=== PATIENT | female | born 1990 | race Caucasian/White ===

== ENCOUNTER 2019-02-17 04:00 | Inpatient (IN) ==
[2019-02-17] MEDS ORDERED: Naloxone 0.4 MG/ML INJ IVP PRN (04:16)
[2019-02-17] MEDS ORDERED: Ondansetron 4 MG/2 ML VIAL IVP PRN (04:16)
[2019-02-17] MEDS ORDERED: *HR* Nalbuphine 10 MG/ML AMPUL IVP PRN (04:16)
[2019-02-17] MEDS ORDERED: Famotidine 20 MG/2 ML VIAL IVP PRN (04:16)
[2019-02-17] MEDS ORDERED: Metoclopramide 10 MG/2 ML VIAL IVP PRN (04:16)
[2019-02-17] MEDS ORDERED: Oxytocin 20 units/ LR 1000 mL 20 UNIT/1,000 ML BAG IVC SCH ×2 (04:30→22:24)
[2019-02-17] MEDS ORDERED: Ringers Solution, Lactated 1,000 ML IVC SCH (04:30)
[2019-02-17 05:12] LABS: Basophils % 0.2 %; Eosinophils # 0.1 K/mcL (0.0-0.6); Eosinophils % 0.5 %; Hematocrit 37.3 % (35.3-44.9); Hemoglobin 12.1 g/dL (11.5-15.4); Immature Granulocytes % 0.4 % (0-4); Lymphocytes # 2.3 K/mcL (0.6-4.6); Lymphocytes % 23.2 %; Mean Corpuscular HGB Conc 32.4 g/dL (31.6-35.5); Mean Corpuscular Hemoglobin 28.5 pg (28.0-33.3); Mean Corpuscular Volume 87.8 fL (83.0-100.0); Mean Platelet Volume 9.8 fL (9.4-12.4); Monocytes # 0.6 K/mcL (0.0-1.3); Platelet Count 239 K/mcL (140-400); Red Blood Count 4.25 M/mcL (3.82-4.97); Red Cell Distribution Width 12.7 % (11.5-14.5); Segmented Neutrophils % 69.7 %; White Blood Count 10.1 K/mcL (4.3-11.1)
[2019-02-17] MEDS ORDERED: *HR* FentaNYL (PF) 100 MCG/2 ML VIAL EP ONE (06:10)
[2019-02-17] MEDS ORDERED: Bupivacaine-MPF 0.25% 10 ML VIAL EP ONE (06:10)
--- NOTE | 2019-02-17 06:10 | Anesthesia Evaluation PreOp ---
Date of Encounter: 02/17/19 Time of Encounter: 06:08 - Past History Planned Operation: FLORINA Cardiac History: Denies any Significant Hx Pulmonary History: Denies Any Significant HX STOCK WETTER History: Denies Any Significant HX Other Medical History: Thyroid Anesthesia History: No Prior Anesthetic Complications, Past Anesthesia (FLORINA x2) : Yes Test: Positive Alcohol Use: none Drug use: none Medications and Allergies [id number]/Iron Fumarate/FA/Dss [ 19 Tablet] 1 each PO DAILY 11/05/18 [History] Allergy/AdvReac Type Severity Reaction Status Date / Time No Known Allergies Allergy Verified 04/29/15 11:31 - Meds/Allergy Pre-op Review Medications Reviewed: Yes Allergies Reviewed: Yes Beta Blockers on Current Med List: No Anesthesia Results - Labs 02/17/19 04:44 Anesthesia Exam 114/71 74 16 fht 120 Height: 5'6" Weight: 70K NPO (# of Hours): 2 Pain Scale: 3 Pain Scale Used: Numeric (1 - 10) - HEENT Pupil (Motor): Pupils equal Mallampati: II Teeth: Normal Oral Opening: Greater than 3 - STOCK WETTER LOC: Oriented STOCK WETTER Motor: Normal RUE, Normal LUE, Normal RLE, Normal LLE, Normal Face STOCK WETTER Sensory: Normal: RUE, LUE, RLE, LLE, Face - Cardiac Rhythm: Regular Murmur: None - Pulmonary Breath Sounds: bilateral Clear Respiratory Effort: Symmetrical Anesthesia Assess/Plan ASA Score: 2 Level of consciousness: Cooperative Anesthetic Plan: Epidural (risks discussed, questions answered, consented) Autologous Blood: No Monitoring Plan: Standard Monitors Recovery Plan: Other
[2019-02-17] MEDS ORDERED: Epidural Premix (fent/bupiv) 110 ML EP SCH (06:15)
[2019-02-17 07:29] LABS: Amphetamine Screen,Urine Negative ng/mL (Cutoff=1000); Barbiturate Screen,Urine Negative ng/mL (Cutoff=200); Benzodiazepines Screen,Urine Negative ng/mL (Cutoff=200); Cannabinoid Screen,Urine Negative ng/mL (Cutoff = 50); Cocaine Screen,Urine Negative ng/mL (Cutoff= 300); Opiate Screen,Urine Negative ng/mL (Cutoff=300); Phencyclidine Screen,Urine Negative ng/mL (Cutoff=25)
--- NOTE | 2019-02-17 07:30 | OB/GYN History & Physical ---
Date of Encounter: 02/17/19 Time of Encounter: 07:28 Assessment and Plan (1) 39 weeks gestation of Current visit: Yes Status: Acute (2) Elective induction of labor planned Current visit: Yes Status: Acute History of Present Illness Chief complaint: induction HPI: Ms. Hagen is a 28 year old female presents today for induction of labor. She is doing well. She is having no complaints. She has a history of rapid labor. She has no drug allergies. She is currently on vitamins. She has no chronic medical conditions. Surgical history is negative. She has no history of abnormal Pap smears, STDs or pelvic infections. Socially she denies tobacco, alcohol, illicit drug use. Obstetric history significant for 2 term vaginal deliveries uncomplicated. Family history is noncontributory. Past Med Surg Social Fam HX - Past Medical History Medical history: non-contributory Psychiatric history: no psych history - Past Surgical History Surgical History: no surgical history, non-contributory - Social History Smoking Status: Never smoker Smokeless Tobacco Status: No Alcohol use: none Drug use: none - Family History Mother Living Status: Still Living Hx Family Cardiac Disorders: No Hx Family Respiratory Disorders: No Hx Family Cancer: No Hx Family GI Disorders: No Hx Family Genitourinary Disorders: No Hx Family Endocrine Disorder: No Hx Family Musculoskeletal Disorders: No Hx Family Neuromuscular Disorders: No Hx Family Neurologic Disorders: No Hx Family HEENT Disorders: No Hx Family Autoimmune Disorders: No Hx Family Reproductive Disorders: No Hx Family Psychosocial Disorders: No Hx Family Medical Disorders: No Obstetrical History - Pregnancies : 3 Para: 2 Term: 2 Livin Medications and Allergies Mzx125/Iron Fumarate/FA/Dss [ 19 Tablet] 1 each PO DAILY 11/05/18 [History] Allergy/AdvReac Type Severity Reaction Status Date / Time No Known Allergies Allergy Verified 04/29/15 11:31 Review of System OB All systems PM: reviewed and no additional remarkable complaints except as stated Exam - Constitutional Constitutional: well developed, well nourished, no acute distress, average body habitus - HEENT HEENT: EOMI, PERRL, Normocephaly - Neck Neck exam: full ROM - Lungs Respiratory exam: CTAB - Cardiovascular Cardiovascular exam: RRR - Abdomen Abdomen: Present: bowel sounds normal, gravid, non tender - Extremities Extremities exam: full ROM - Vagina Vagina: Present: normal moisture - Cervix Dilation: 0 Effacement: 60 Station: -2 - Uterus Uterus exam: Present: normal size Results Result Diagrams: 02/17/19 04:44 All other labs normal. - VTE Reasons for not Prescribing Prophylaxis: Treatment not Indicated - Low risk for VTE
--- NOTE | 2019-02-17 07:34 | OB Labor Progress Note ---
Date of Encounter: 02/17/19 Time of Encounter: 06:55 Labor Progress Note - Subjective Subjective: Patient breathing through contractions; states pain is tolerable at this time. - Vital Signs Vital Signs: VSS - Cervix Cervix: 1-2/60/-3 anterior - Heart Tones Heart Tones: 130 baseline moderate variability with 15 x 15 accels no decels - [place]: Contractions every 3-4 minutes palpate moderate - Interventions Interventions: Attempted to place intracervical tomas without success. - Plan Plan: Continue routine labor management Consider intracervical tomas placement Continue pitocin titration for adequate contractions Anticipate vaginal delivery POC per consult with Dr Nicholas.
--- NOTE | 2019-02-17 09:48 | OB Labor Progress Note ---
Date of Encounter: 02/17/19 Time of Encounter: 09:46 Labor Progress Note - Subjective Subjective: Pt reports mild to moderate discomfort with contractions. - Vital Signs Vital Signs: VSS - Cervix Cervix: 3/80/-2 - Heart Tones Heart Tones: Category I - [place]: 2-3 minutes - Interventions Interventions: Cook catheter placed using sterile technique. Uterine balloon inflated with 60ml sterile water. 40ml placed in vaginal balloon. Pt tolerated well. - Plan Plan: Cook catheter placed per Dr. Nicholas's request. Epidural when requested. Anticipate .
[2019-02-17] MEDS ORDERED: Bupivacaine-MPF 0.25% 10 ML VIAL ONE (13:25)
[2019-02-17] MEDS ORDERED: *HR* FentaNYL (PF) 100 MCG/2 ML VIAL ONE (13:25)
--- NOTE | 2019-02-17 14:07 | Anesthesia Procedures ---
Date of Encounter: 02/17/19 Time of Encounter: 13:28 Procedures: Anesthesia - Epidural/Spinal Patient ID/Chart reviewed: Yes Patient examined: Yes OB Eval: Gestational age: 39 OB Eval: : 3 OB Eval: Hx Para: 2 OB Eval: Dilated at (cm): 6 OB Eval: Contractions: Non-stressed pattern Consent Obtained: Yes Supplemental Oxygen: None/Room Air Site Prep: Aseptic Technique, Sterile prep and drape, 0.5% Chlorhexidine/Alcohol Patient position: upright Local Anesthetic: Lidocaine 1% Amount of Local Anesthetic used: 3 Touhy Needle Gauge: 18 Touhy Needle Depth (cm): 5 Catheter Depth at Skin (cm): 10 Test Dose (1.5% Lido + Epi): Volume given (mls): 3 Test Dose Result: Negative Loading Dose: 0.25% Marcaine (mls): 5 Loading Dose: Fentanyl (mcg): 100 Loading Dose Administered: Thru Catheter Infusion Med: 0.125% Bupivacaine w/ 2 mcg/ml Fentanyl Infusion Rate (mls/hr): 15 (demand bolus 4ml q20 mins, 2 per hour) Catheter Secured in Place: Tegaderm, Tape Interspace Used: L3-L4 Loss of Resistance (KEVIN): Yes Blood: No CSF: No Paresthesia: No Procedure: DPE technique used with 25G carter. No meds administered in subarachnoid space. Vitals + FHT's: Vital Signs Time 1328 1342 1345 1350 1355 BP 138/82 122/81 124/73 118/75 114/82 Pulse 83 98 76 73 91 FHTs 120 120 120 120 120
--- NOTE | 2019-02-17 19:53 | OB/GYN Procedure Note ---
Delivery - Delivery Date: 02/17/19 Provider: Tj Nicholas Intrapartum events: none Delivery induction: oxytocin, tomas Delivery augmentation: rupture of membranes, pitocin Delivery monitor: external FHT, external uterine Anesthesia: epidural Quantitated Blood Loss: 400 - Infant (s) A Infant Delivery Date: 02/17/19 Infant Delivery Time: 19:39 Presentation: vertex Position: MIGUEL Route of delivery: Gender: Female Viability: Viable Pounds: 8 Ounces: 1 Weight Gram: 3.67 kg at 1 minute: 9 at 5 mins: 9 Shoulder Dystocia: not encountered Placenta: spontaneous Cord: 3 umbilical vessels - Repair Episiotomy: none Laceration Description: None - Complications Delivery complications: none - Disposition Mom disposition: stable in LDR disposition: stable in LDR - Comments Comments: This patient progressed to complete and pushing. After approximately 40 minutes of pushing this patient was exhausted. She did not feel she could push any longer. Infant's head came down to a +2 station. She was unable to bring baby down any farther even with multiple assisted techniques. At this time we elected to place a vacuum. was found to be in right occiput anterior presentation. A mighty VAC was utilized in the usual fashion for a total of 55 seconds. One pull was noted which brought the baby's head out on the vagina. The mighty Vac was taken off. The rest of the was then delivered without difficulty. There was a cord around the neck which was delivered through. Infant cried immediately upon delivery. The cord was clamped cut. The infant was passed to nursing in attendance. Cord blood was obtained. The placenta was delivered spontaneously and intact. There were no cervical, vaginal, periurethral, or perineal lacerations noted. Patient delivered a female infant weight was 8 lbs. 1 oz., 3670 g. Apgars were 9 at 1 minute and 9 at 5 minutes. Estimated blood loss 400 mL.
[2019-02-17] MEDS ORDERED: Measles/Mumps/Rubella Vacc 0.5 ML VIAL SQ PRN (22:24)
[2019-02-17] MEDS ORDERED: Rho Immune Globulin 1,500 UNIT SYRINGE IM PRN (22:24)
[2019-02-17] MEDS: Acetaminophen 325 MG TABLET PO PRN (22:38)
[2019-02-18] MEDS: Acetaminophen 325 MG TABLET PO PRN ×2 (06:26→14:41)
[2019-02-18 07:42] LABS: Basophils % 0.2 %; Eosinophils % 0.2 %; Hematocrit 38.6 % (35.3-44.9); Hemoglobin 12.1 g/dL (11.5-15.4); Immature Granulocytes % 0.8 % (0-4); Lymphocytes # 2.4 K/mcL (0.6-4.6); Lymphocytes % 13.1 %; Mean Corpuscular HGB Conc 31.3 g/dL (31.6-35.5); Mean Corpuscular Hemoglobin 27.6 pg (28.0-33.3); Mean Corpuscular Volume 87.9 fL (83.0-100.0); Mean Platelet Volume 9.8 fL (9.4-12.4); Monocytes % 5.6 %; Neutrophils # 14.9 K/mcL (1.6-8.9); Platelet Count 223 K/mcL (140-400); Red Blood Count 4.39 M/mcL (3.82-4.97); Red Cell Distribution Width 12.7 % (11.5-14.5); Segmented Neutrophils % 80.1 %
[2019-02-18 08:02] LABS: White Blood Count 18.6 K/mcL (4.3-11.1)
[2019-02-18] MEDS ORDERED: Prenatal Vit/FA 1 EACH TABLET PO SCH (09:00)
[2019-02-18] MEDS ORDERED: Ibuprofen 600 MG TABLET PO PRN (09:13)
--- NOTE | 2019-02-18 12:53 | Discharge Summary ---
Date of Encounter: 02/18/19 Time of Encounter: 12:51 - Discharge Diagnosis (1) Vaginal delivery Priority: Primary Status: Acute Comments: Patient meeting day one milestones. Pain well-controlled with prescribed medications. Voiding without difficulty, tolerating regular diet, bleeding light. No bowel movement yet. Anticipate discharge this evening (2) Breast feeding status of mother Priority: Secondary Status: Acute Comments: support as needed. Breast pump prescription provided upon discharge. - Discharge Medications Prescriptions: New Breast Pump [BREAST PUMP] 1 each .ROUTE AD #1 each Docusate [Colace] 100 mg PO BID capsule Ibuprofen [Motrin] 600 mg PO Q6HR PRN #60 tablet PRN Reason: CRAMPING Acetaminophen [Tylenol] 650 mg PO Q6HR PRN tablet PRN Reason: Mild Pain Continued Rhr275/Iron Fumarate/FA/Dss [ 19 Tablet] 1 each PO DAILY Home Medications: [id number]/Iron Fumarate/FA/Dss [ 19 Tablet] 1 each PO DAILY 11/05/18 [History] Acetaminophen [Tylenol] 650 mg PO Q6HR PRN tablet 02/18/19 [Rx] Breast Pump [BREAST PUMP] 1 each .ROUTE AD #1 each 02/18/19 [Rx] Docusate [Colace] 100 mg PO BID capsule 02/18/19 [Rx] Ibuprofen [Motrin] 600 mg PO Q6HR PRN #60 tablet 02/18/19 [Rx] Allergies/Adverse Reactions: Allergy/AdvReac Type Severity Reaction Status Date / Time No Known Allergies Allergy Verified 04/29/15 11:31 Data Procedures and tests throughout hospitalization: Laboratory Tests 02/17/19 02/17/19 02/17/19 04:44 04:44 20:25 WBC 10.1 RBC 4.25 Hgb 12.1 Hct 37.3 MCV 87.8 MCH 28.5 MCHC 32.4 RDW 12.7 Plt Count 239 MPV 9.8 Immature Gran % 0.4 Seg Neutrophils % 69.7 Lymphocytes % 23.2 Monocytes % 6.0 Eosinophils % 0.5 Basophils % 0.2 Neutrophils # 7.0 Lymphocytes # 2.3 Monocytes # 0.6 Eosinophils # 0.1 Basophils # 0.0 Urine Opiates Screen Negative Ur Barbiturates Screen Negative Ur Phencyclidine Scrn Negative Ur Amphetamines Screen Negative U Benzodiazepines Scrn Negative Urine Cocaine Screen Negative U Marijuana (THC) Screen Negative Ur Drug Screen Interp See Below Baby's Blood Type A RH NEGATIVE Mother's Blood Type A RH NEGATIVE Rhogam Indicated NO 02/18/19 06:45 WBC 18.6 H D RBC 4.39 Hgb 12.1 Hct 38.6 MCV 87.9 MCH 27.6 L MCHC 31.3 L RDW 12.7 Plt Count 223 MPV 9.8 Immature Gran % 0.8 Seg Neutrophils % 80.1 Lymphocytes % 13.1 Monocytes % 5.6 Eosinophils % 0.2 Basophils % 0.2 Neutrophils # 14.9 H Lymphocytes # 2.4 Monocytes # 1.0 Eosinophils # 0.0 Basophils # 0.0 Urine Opiates Screen Ur Barbiturates Screen Ur Phencyclidine Scrn Ur Amphetamines Screen U Benzodiazepines Scrn Urine Cocaine Screen U Marijuana (THC) Screen Ur Drug Screen Interp Baby's Blood Type Mother's Blood Type Rhogam Indicated Labs on day of discharge: Labs from last 24 hours 02/18/19 02/17/19 06:45 20:25 WBC 18.6 H D RBC 4.39 Hgb 12.1 Hct 38.6 MCV 87.9 MCH 27.6 L MCHC 31.3 L RDW 12.7 Plt Count 223 MPV 9.8 Immature Gran % 0.8 Seg Neutrophils % 80.1 Lymphocytes % 13.1 Monocytes % 5.6 Eosinophils % 0.2 Basophils % 0.2 Neutrophils # 14.9 H Lymphocytes # 2.4 Monocytes # 1.0 Eosinophils # 0.0 Basophils # 0.0 Baby's Blood Type A RH NEGATIVE Mother's Blood Type A RH NEGATIVE Rhogam Indicated NO Date of admission: 02/17/19 04:11 Primary care physician: PCP NONE Consults: 02/17/19 22:24 Consult to [facility] [CONS] Routine Comment: Vaginal delivery, consult needed Discharging clinician: Bren Edwards Anticipated date of discharge: 02/18/19 - Patient Status Disposition: Home, Self-Care Condition: Good Functional capacity at discharge: independent ambulation Overall status at discharge: patient is progressing back to baseline - Discharge Instructions Follow Up With: NONE,PCP [Primary Care Provider] - Tj Nicholas MD [Partnered Physician] - - Diet and Activity Activity: resume usual activities as tolerated Diet: regular diet Hospital Course Reason for admission: induction of labor Delivery: vacuum extraction Episiotomy: none Laceration: none Other procedures: none complications: none Discharge diagnosis: IUP at term delivered [place] baby: female Hospital course: Delivery Date: 02/17/19 Provider: Tj Nicholas Intrapartum events: none Delivery induction: oxytocin, tomas Delivery augmentation: rupture of membranes, pitocin Delivery monitor: external FHT, external uterine Anesthesia: epidural Quantitated Blood Loss: 400 - (s) A Infant Delivery Date: 02/17/19 Delivery Time: 19:39 Presentation: vertex Position: MIGUEL Route of delivery: Gender: Female Viability: Viable Pounds: 8 Ounces: 1 Weight Gram: 3.67 kg at 1 minute: 9 at 5 mins: 9 Shoulder Dystocia: not encountered Placenta: spontaneous Cord: 3 umbilical vessels - Repair Episiotomy: none Laceration Description: None - Complications Delivery complications: none - Disposition Mom disposition: stable in LDR [place] disposition: stable in LDR - Comments Comments: This patient progressed to complete and pushing. After approximately 40 minutes of pushing this patient was exhausted. She did not feel she could push any longer. 's head came down to a +2 station. She was unable to bring baby down any farther even with multiple assisted techniques. At this time we elected to place a vacuum. was found to be in right occiput anterior presentation. A mighty VAC was utilized in the usual fashion for a total of 55 seconds. One pull was noted which brought the baby's head out on the vagina. The mighty Vac was taken off. The rest of the was then delivered without difficulty. There was a cord around the neck which was delivered through. Infant cried immediately upon delivery. The cord was clamped cut. The was passed to nursing in attendance. Cord blood was obtained. The placenta was delivered spontaneously and intact. There were no cervical, vaginal, periurethral, or perineal lacerations noted. Patient delivered a female weight was 8 lbs. 1 oz., 3670 g. Apgars were 9 at 1 minute and 9 at 5 minutes. Estimated blood loss 400 mL. Time Attestation: Total time spent providing and/or coordinating discharge services: Time Spent: Less than 30 minutes Exam - Constitutional Vitals: Temp Pulse Resp BP Pulse Ox 97.9 F 84 16 99/68 98 02/18/19 08:12 02/18/19 08:12 02/18/19 08:12 02/18/19 08:12 02/18/19 04:15 General appearance IM: A&O X 3, pleasant, no acute distress, answers questions appropriately - Respiratory Respiratory exam: Present: CTAB. Absent: respiratory distress - Cardiovascular Cardiovascular exam IM: Present: RRR, +S1, +S2. Absent: irregular rhythm - GI/Abdominal GI/Abdominal exam IM: normal bowel sounds, soft - Rectal Rectal exam: deferred - Uterine Tone: Firm Uterus Position: 1 Finger Below Umbilicus, Midline - Extremities Exam Extremities exam IM: Present: full ROM, normal capillary refill, normal inspection. Absent: calf tenderness - Neurological Exam Neurological exam: alert, normal gait, oriented X3
[2019-02-18 14:44] VITALS: BP 103/80
== END 2019-02-18 20:58 | disposition home or self-care (01) | DRG 560 ==
LOC: 1NENULAB 04:11 → 1NENUOBS 22:24
PROVIDERS: ADMIT Obstetrics & Gynecology; ATTEND Obstetrics & Gynecology